=== PATIENT | female | born 1955 | race Caucasian/White ===

== ENCOUNTER → 2023-05-14 13:50 | Outpatient (REF) | payer MEDICARE, OTHER, SELFPAY | LOC: HWRAD 13:50 | PROVIDERS: ATTENDING PHYSICIAN Nurse Practitioner Family | DX: R05.2 Subacute cough (principal) | CPT/HCPCS: 71046 ==

== ENCOUNTER → 2023-06-08 16:43 | Outpatient (REF) | payer MEDICARE, OTHER, SELFPAY ==
[2023-06-08 17:30] LABS: % Basophils 1.6 % (0-2); % Immature Granulocytes 0.3 % (0-0.5); % Lymphocytes 23.8 % (20.5-51.1); % Monocytes 6.8 % (1.7-9.3); % Neutrophils 64.5 % (42.2-75.2); Absolute Basophils 0.1 10^3/uL (0-0.2); Absolute Eosinophils 0.2 10^3/uL (0-0.7); Absolute Lymphocytes 1.8 10^3/uL (1.2-3.4); Absolute Monocytes 0.5 10^3/uL (0.1-0.6); Absolute Neutrophils 4.8 10^3/uL (1.4-6.5); Hematocrit 37.8 % (37.0-47.0); Hemoglobin 12.8 g/dL (12.0-16.0); Mean Corp Hgb Conc. 33.9 g/dL (33.0-37.0); Mean Corpuscular Hgb 28.7 pg (27.0-31.0); Mean Corpuscular Volume 84.8 fL (81.0-99.0); Mean Platelet Volume 10.8 fL (7.4-10.4); Nucleated Red Blood Cells % 0 %; Platelet Count 270 10^3/uL (130-400); Red Blood Cell Count 4.46 10^6/uL (4.20-5.40); Red Cell Dist. Width 13.7 % (11.5-14.5); White Blood Cell Count 7.5 10^3/uL (4.8-10.8)
[2023-06-08 17:48] LABS: ALT (SGPT) 21 U/L (0-35); AST (SGOT) 28 U/L (14-36); Albumin 5.2 g/dl (3.5-5.0); Alkaline Phosphatase 60 U/L (38-126); Blood Urea Nitrogen 17 mg/dl (7-17); Carbon Dioxide 26 mmol/L (22-30); Chloride 101 mmol/L (98-107); Glucose 83 mg/dl (70-99); Potassium 4.4 mmol/L (3.5-5.1); Sodium 138 mmol/L (135-145); Total Bilirubin 0.8 mg/dl (0.2-1.3); Total Protein 7.9 g/dl (6.3-8.2); eGFR > 60.00
== END ==
LOC: REG 16:43
PROVIDERS: ATTENDING PHYSICIAN Nurse Practitioner Family
DX: R42 Dizziness and giddiness (principal)
CPT/HCPCS: 36415; 80053; 85025

== ENCOUNTER → 2023-06-09 06:39 | Outpatient (REF) | payer MEDICARE, OTHER, SELFPAY | LOC: RCS 06:39 | PROVIDERS: ATTENDING PHYSICIAN Nurse Practitioner Family; FAMILY PHYSICIAN Family Medicine | DX: R42 Dizziness and giddiness (principal) | CPT/HCPCS: 93005 ==

== ENCOUNTER → 2023-06-10 14:15 | Outpatient (REF) | payer MEDICARE, OTHER, SELFPAY ==
[2023-06-10 14:48] LABS: Ionized Calcium 1.22 mMOL/L (1.15-1.33)
[2023-06-10 17:03] LABS: Calcium 10.6 mg/dl (8.4-10.2)
[2023-06-12 08:55] LABS: Intact PTH 52.1 pg/ml (13.6-85.8)
== END ==
LOC: REG 14:15
PROVIDERS: ATTENDING PHYSICIAN Nurse Practitioner Family; REFERRING PHYSICIAN Internal Medicine Endocrinology, Diabetes & Metabolism
DX: E83.52 Hypercalcemia (principal)
CPT/HCPCS: 36415; 82330; 83970

== ENCOUNTER 2023-07-07 11:33 | Emergency (ER) | payer MEDICARE, OTHER, SELFPAY ==
[2023-07-07 11:35] VITALS: BP 194/91
[2023-07-07 13:00] VITALS: BP 164/83; BMI 27.3
[2023-07-07 13:50] LABS: % Basophils 1.7 % (0-2); % Eosinophils 3.3 % (0-6); % Immature Granulocytes 8.9 % (0-0.5); % Lymphocytes 24.6 % (20.5-51.1); % Monocytes 7.3 % (1.7-9.3); % Neutrophils 54.2 % (42.2-75.2); Absolute Basophils 0.2 10^3/uL (0-0.2); Absolute Eosinophils 0.4 10^3/uL (0-0.7); Absolute Lymphocytes 2.7 10^3/uL (1.2-3.4); Absolute Monocytes 0.8 10^3/uL (0.1-0.6); Absolute Neutrophils 5.9 10^3/uL (1.4-6.5); Hematocrit 39.8 % (37.0-47.0); Hemoglobin 13.1 g/dL (12.0-16.0); Mean Corp Hgb Conc. 32.9 g/dL (33.0-37.0); Mean Corpuscular Volume 88.2 fL (81.0-99.0); Mean Platelet Volume 9.9 fL (7.4-10.4); Nucleated Red Blood Cells % 0 %; Platelet Count 385 10^3/uL (130-400); Red Blood Cell Count 4.51 10^6/uL (4.20-5.40); Red Cell Dist. Width 13.6 % (11.5-14.5); White Blood Cell Count 10.9 10^3/uL (4.8-10.8)
[2023-07-07 14:01] LABS: ALT (SGPT) 95 U/L (0-35); AST (SGOT) 39 U/L (14-36); Albumin 4.6 g/dl (3.5-5.0); Alkaline Phosphatase 86 U/L (38-126); Blood Urea Nitrogen 15 mg/dl (7-17); Calcium 10.3 mg/dl (8.4-10.2); Carbon Dioxide 29 mmol/L (22-30); Chloride 101 mmol/L (98-107); Estimated Creatinine Clearance 72 ml/min; Glucose 78 mg/dl (70-99); Potassium 3.9 mmol/L (3.5-5.1); Sodium 139 mmol/L (135-145); Total Bilirubin 0.8 mg/dl (0.2-1.3); Total Protein 7.2 g/dl (6.3-8.2); eGFR > 60.00
[2023-07-07 14:07] LABS: COVID-19 Antigen Negative (Negative)
[2023-07-07 14:11] LABS: Troponin I < 0.012 ng/ml
[2023-07-07 14:50] VITALS: BP 155/77
--- NOTE | 2023-07-07 16:25 | ED.GENMED ---
History of Present Illness
General
Chief Complaint: Dizziness
Source: patient
Exam Limitations: none
Time Seen by Provider: 07/07/23 12:08
Nursing documentation reviewed up to this point in time: agreed with
Travel History
Have you had any contact with someone who has COVID-19?: No
Do you have any symptoms of coronavirus? Fever > 100 degrees, chills, cough, shortness of breath, sore throat, loss of taste or smell, muscle aches, or headache?: No
History of Present Illness
History of Present Illness:
68-year-old female with a history of hypertension on lisinopril since March presents for multiple complaints. She was feeling not well this morning, lightheaded and a little shaky and took her blood pressure and it was 170-180/90. She took it
several times and then decided to come to the hospital. There is a long back story about how she started with COVID-19 in March for the first time. She was vaccinated previously. Patient was relatively asymptomatic other than a headache during
her COVID illness but then post COVID started taking her blood pressures at home spontaneously and noticed that they were mildly elevated in the 130s over 80s at times, sometimes 140s over 90s. She saw her family doctor who ultimately put her on
lisinopril 10 mg and she has been monitoring her blood pressures twice a day ever since then. She has had ups and downs in terms of her readings but it seemed relatively controlled however she has had this coughing issue over the last several
months which seem to be related to an acute illness in April that was treated with a Z-Luis Felipe and some steroids and then never really went away and she came off the lisinopril and switch to HCTZ for a brief time but then did not tolerate that well
so she went back on the lisinopril in May and her blood pressures came down to 110s over 60s however she has had this sunlight chronic cough for the last 6 weeks but seems to have gotten much worse in the last 10 days when she was exposed to a
grandchild who is also sick, another family member on vacation got this illness with sinus congestion, drainage, and a cough. Patient did get a prescription for an antibiotic and has been on cefdinir for the last 3 days and not seeing much of an
improvement. She has had been straining for her cough and has been using NyQuil here and there as well to get some sleep. She gets a spastic cough which is mostly dry but somewhat productive. She has had some sinus pressure and a mild headache
but she believes that the headache is better today. She has not had any near syncopal symptoms, other than feeling mildly lightheaded she has not passed out, had chest pain, vomiting, diarrhea. She has not had a fever. No hemoptysis, no pleuritic
pain
Past History
Past History
ED Past Medical History: HTN
ED Past Surgical History: None and Gynecological
Social History
Tobacco: Non-smoker
Alcohol: Occasional
Drug: None
Personal:
Living: with family
Employment: Employed
Family History
Family History: Other (Cousin with aortic valvular disease)
Review of Systems
Review of Systems
Allergies reviewed?: Yes
All Other Systems: Not applicable
Phy Exam
Physical Exam
Physical Exam:
GENERAL: Alert , in no apparent distress, somewhat anxious
EYE: pupils equal and reactive
NECK: Supple
ENT: b/l TM s clear, pharynx nonerythematous no tonsillar hypertrophy or exudates
CARDIAC: Regular rate and rhythm, no edema
LUNGS: Clear breath sounds bilaterally, no acute respiratory distress, no wheezes/rales/rhonchi, occ cough
ABDOMEN: Soft, without focal tenderness, no r/g, no cvat, normal bowel sounds
NEUROLOGICAL: Alert and oriented, no focal neuro deficits
SKIN: Warm and dry, skin intact.
MUSCULOSKELETAL: No edema, well perfused.
PSYCH: Normal and appropriate interaction.
Course
Orders/Labs/Results
Orders:
Orders
07/07/23 13:22
CR Chest - 2 Views Urgent
Comment:
Reason For Exam: cough
07/07/23 13:23
Electrocardiogram (*1) Urgent
Reason for Study: Hypertension, Benign
EKG- Treatment ONCE
07/07/23 13:30
COVID-19 Antigen Urgent
Source: Nasal Swab
Complete Blood Count/With Diff Urgent
Comprehensive Metabolic Panel Urgent
Troponin I Urgent
Influenza A+B Rapid Molecular Urgent
NOEL Source: Nasal Swab
Specimen Description:
Abnormal Lab Results
07/07/23
13:30
WBC 10.9 H 10^3/uL
(4.8-10.8)
MCHC 32.9 L g/dL
(33.0-37.0)
Abs Immat Gran (auto) 1.0 H 10^3/uL
(0-0.05)
Absolute Monos (auto) 0.8 H 10^3/uL
(0.1-0.6)
Immature Gran % 8.9 H %
(0-0.5)
Calcium 10.3 H mg/dl
(8.4-10.2)
AST 39 H U/L
(14-36)
ALT 95 H U/L
(0-35)
07/07/23 13:30
07/07/23 13:30
Vital Signs
Initial and Last Documented VS:
Initial Vital Signs
Temp Pulse Resp BP Pulse Ox
98.1 F 59 20 194/91 100
07/07/23 11:35 07/07/23 11:35 07/07/23 11:35 07/07/23 11:35 07/07/23 11:35
Last Documented Vital Signs
Temp Pulse Resp BP Pulse Ox
98.1 F 58 18 155/77 98
07/07/23 11:35 07/07/23 14:50 07/07/23 14:50 07/07/23 14:50 07/07/23 14:50
MDM/Problems Addressed
Differential Diagnosis Includes:
Bronchitis, URI, cough related to BO inhibitor, COPD
MDM/Problems Addressed:
68-year-old female with a recent diagnosis of hypertension on lisinopril presents with a cough and feeling lightheaded with elevated blood pressure reading today. Patient has had some ongoing issues with her blood pressure where she has been taking
it twice a day for several months and been seen by the family doctor on several occasions because of this. She has had COVID at the beginning and then also got over more recent infection from her grandchild who was sick with a cold. Her
[id number]-ota also got the same infection. Patient did a home COVID test which was negative.
She started an antibiotic after returning from vacation and just does not feel well this morning and checked her blood pressure which was more elevated than usual in the 170s over 80s. She has not had any chest pain, exertional dyspnea and dyspnea
at rest. She is not coughing up significant amounts of sputum. On exam she seems mildly anxious but overall only had an occasional cough with clear lungs. She is no signs of edema. Her pulse ox was normal and her blood pressure came down to
160/80 without intervention. Chest x-ray independently reviewed by me and negative for pneumonia. There is a slight hyper aeration. Patient has never tried an inhaler for her cough, she will be given an inhaler prescription at this time. I would
recommend she continue the antibiotics as prescribed. Her EKG was nonischemic sinus bradycardia and her troponin was negative. No signs of endorgan damage. Her LFTs were minimally elevated which could be related to a viral illness. Patient
should probably stop checking her blood pressures as regularly as she does once they normalize again. I believe this is causing a lot of stress to her. As it turns out patient's other son is due to have a baby in the next couple of days and she
wants to be well enough for and I believe her stress level is elevated causing her elevated blood pressure. Came down to 150/70. Discharge home
*Critical Care Note
Total Time (30-74mins, 75-104mins- exclusive of procedures): Not Applicable
ED Attending Note
-
Portions of this chart may have been created with voice recognition software.� Occasional wrong word or��sound alike� substitutions may have occurred due to the inherent limitations of voice recognition software.
Discharge Plan
Departure
Patient Disposition: Home (Routine Discharge)
Date of Disposition: 07/07/23
Time of Disposition: 15:30
Patient with high blood pressure during this ER visit?: Yes
Condition: Fair
Covid-19: Not Applicable
Discharge Problem:
Elevated blood pressure reading, Bronchitis
Instructions: Acute Bronchitis, Adult (DC), BLOOD PRESSURE
Prescriptions:
New
albuterol sulfate 90 mcg/actuation aerosol powdr breath activated
2 inh inhalation Q6H PRN (Reason: shortness of breath or wheezing) Qty: 1 0RF
No Action
diclofenac sodium 75 MG tablet,delayed release (DR/EC)
75 mg PO BID
levothyroxine 112 MCG tablet
112 mcg PO DAILY
Referrals:
Eric Ennis MD [Active] - Follow up in 10 days (pulmonary)
Anneliese Burkett DO [Family Provider] -
Activity Restrictions/Additional Instructions:
Your blood pressure came down on its own, is not back to normal yet but it is reassuring that you had no signs of endorgan damage. He should for now continue the lisinopril although this can cause a chronic cough so he should be aware of that. For
your cough and bronchitis continue the antibiotic that you were prescribed for now. You should also try using Coricidin HBP during the day so it will not raise your blood pressure, occasionally you can try dose of NyQuil at night if you need to.
Your chest x-ray was clear. You can try albuterol 1 or 2 puffs every 4-6 hours as needed for spastic cough. If you have persistent symptoms you should see a pulmonary doctor. Probably try to cut back on monitoring your blood pressure so much
because this can cause some degree of anxiety. If you do feel symptomatic feel free to check your blood pressure and call your doctor with any concerns. Return to the ER for passing out, chest pain, exertional shortness of breath, leg swelling,
coughing up blood, or any concerns
Interventions
Interventions:
*Risk Screen - Suicide Last Done: 07/07/23 13:01
*General Assessment Last Done: 07/07/23 13:01
*Neglect/Abuse Screening Last Done: 07/07/23 13:01
ED- Fall Risk Assessment Last Done: 07/07/23 13:02
*ED COVID-19 Vaccine History Last Done: 07/07/23 11:35
*Nursing Disposition Last Done: 07/07/23 15:49
ED- Neurological Assessment Last Done: 07/07/23 13:02
ED- Cardiac Assessment Last Done: 07/07/23 15:50
ED Swallowing Screen Last Done: 07/07/23 15:47
Discharge Date and Time
Discharge Date/Time: 07/07/23 15:51
Print Language: NEPALI
== END 2023-07-07 15:51 | disposition home or self-care (01) ==
LOC: EMR 11:33
PROVIDERS: Physician Assistant; EMERGENCY PHYSICIAN Emergency Medicine; FAMILY PHYSICIAN Family Medicine
DX: J20.9 Acute bronchitis, unspecified (principal); I10 Essential (primary) hypertension; Z11.52 Encounter for screening for COVID-19
CPT/HCPCS: 99285; 71046; 80053; 84484; 85025; 87502; 87811; 93005

== ENCOUNTER → 2023-07-12 08:13 | Outpatient (REF) | payer MEDICARE, OTHER, SELFPAY | LOC: RCS 08:13 | PROVIDERS: ATTENDING PHYSICIAN Nurse Practitioner Family | DX: R42 Dizziness and giddiness (principal); R00.1 Bradycardia, unspecified | CPT/HCPCS: 93225; 93226 ==

== ENCOUNTER → 2023-11-01 16:27 | Outpatient (REF) | payer MEDICARE, OTHER, SELFPAY | LOC: WDC 16:27 | PROVIDERS: ATTENDING PHYSICIAN Internal Medicine; FAMILY PHYSICIAN Family Medicine | DX: Z12.31 Encounter for screening mammogram for malignant neoplasm of breast (principal); Z12.39 Encounter for other screening for malignant neoplasm of breast | CPT/HCPCS: 77063; 77067 ==

== ENCOUNTER → 2024-01-26 14:22 | Outpatient (REF) | payer MEDICARE, OTHER, SELFPAY | LOC: HWRAD 14:22 | PROVIDERS: ATTENDING PHYSICIAN Family Medicine | DX: R91.1 Solitary pulmonary nodule (principal) | CPT/HCPCS: 71250 ==

== ENCOUNTER → 2024-02-22 06:20 | Day surgery (SDC) | payer MEDICARE, OTHER, SELFPAY | LOC: GI 06:20 | PROVIDERS: ATTENDING PHYSICIAN Internal Medicine | DX: Z12.11 Encounter for screening for malignant neoplasm of colon (principal); K51.40 Inflammatory polyps of colon without complications; D12.5 Benign neoplasm of sigmoid colon; K64.8 Other hemorrhoids; Z86.0100 Personal history of colon polyps, unspecified | CPT/HCPCS: 45385; 88305 ==

== ENCOUNTER → 2024-06-08 12:05 | Outpatient (REF) | payer MEDICARE, OTHER, SELFPAY ==
[2024-06-08 16:09] LABS: % Basophils 1.3 % (0-2); % Immature Granulocytes 0.5 % (0-0.5); % Monocytes 7.3 % (1.7-9.3); % Neutrophils 59.9 % (42.2-75.2); Absolute Basophils 0.1 10^3/uL (0-0.2); Absolute Eosinophils 0.3 10^3/uL (0-0.7); Absolute Lymphocytes 1.6 10^3/uL (1.2-3.4); Absolute Monocytes 0.4 10^3/uL (0.1-0.6); Absolute Neutrophils 3.6 10^3/uL (1.4-6.5); Hematocrit 43.4 % (37.0-47.0); Hemoglobin 14.3 g/dL (12.0-16.0); Mean Corp Hgb Conc. 32.9 g/dL (33.0-37.0); Mean Corpuscular Hgb 29.1 pg (27.0-31.0); Mean Corpuscular Volume 88.2 fL (81.0-99.0); Mean Platelet Volume 10.6 fL (7.4-10.4); Nucleated Red Blood Cells % 0 %; Platelet Count 295 10^3/uL (130-400); Red Blood Cell Count 4.92 10^6/uL (4.20-5.40)
[2024-06-08 16:11] LABS: ALT (SGPT) 50 U/L (0-35); AST (SGOT) 38 U/L (14-36); Albumin 4.7 g/dl (3.5-5.0); Alkaline Phosphatase 74 U/L (38-126); Blood Urea Nitrogen 16 mg/dl (7-17); Calcium 10.1 mg/dl (8.4-10.2); Carbon Dioxide 27 mmol/L (22-30); Chloride 104 mmol/L (98-107); Glucose 103 mg/dl (70-99); Potassium 4.8 mmol/L (3.5-5.1); Sodium 140 mmol/L (135-145); Total Bilirubin 0.8 mg/dl (0.2-1.3); Total Protein 7.5 g/dl (6.3-8.2); eGFR > 60.00
== END ==
LOC: HWLAB 12:05
PROVIDERS: ATTENDING PHYSICIAN Nurse Practitioner Family
DX: R07.89 Other chest pain (principal); E03.9 Hypothyroidism, unspecified
CPT/HCPCS: 36415; 71101; 80053; 85025; 85379

== ENCOUNTER → 2024-10-31 09:01 | Outpatient (REF) | payer MEDICARE, OTHER, SELFPAY | LOC: HWWDC 09:01 | PROVIDERS: ATTENDING PHYSICIAN Family Medicine | DX: Z12.31 Encounter for screening mammogram for malignant neoplasm of breast (principal) | CPT/HCPCS: 77063; 77067 ==

== ENCOUNTER → 2025-03-01 07:59 | Outpatient (REF) | payer MEDICARE, OTHER, SELFPAY | LOC: HWRAD 07:59 | PROVIDERS: ATTENDING PHYSICIAN Nurse Practitioner Adult Health; FAMILY PHYSICIAN Family Medicine; REFERRING PHYSICIAN Otolaryngology | DX: R09.89 Other specified symptoms and signs involving the circulatory and respiratory systems (principal) | CPT/HCPCS: 70486 ==